=== PATIENT | female | born 2005 | race Caucasian/White ===

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

== ENCOUNTER 2024-05-16 21:59 | Emergency (ER) | payer MEDICAID, SELFPAY ==
[2024-05-16 22:03] VITALS: BP 135/74; PULSE 90; RESP 16; TEMP 36.2; O2SAT 100
--- NOTE | 2024-05-16 22:10 | W.ED.GENAD ---
Discharge Plan Disposition Patient Disposition: Home Condition: Good Discharge Details Clinical Impression: Pyelonephritis Primary Care Provider: None,None ED Provider: Antoine Lynn [place] Meds and New Rx's Prescriptions: New cefpodoxime 200 mg tablet 200 mg PO BID Qty: 14 0RF Rx Instructions: must administer with a meal/food Continued norgestimate-ethinyl estradiol [Tri-Lo-Shereen] 0.18/0.215/0.25 mg-25 mcg tablet 1 tab PO DAILY Qty: 84 1RF Discharge Instructions Instructions: Urinary Tract Infection, Adult ED Additional Instructions: You were seen for urinary symptoms and received dose of IV antibiotics with prescription for antibiotics at pharmacy. Please take as directed. Rest, hydrate, use acetaminophen or ibuprofen for pain/fever. Follow up with PCP at [facility] next week. Return to ED for worsening pain, confusion/lethargy, persistent vomiting, other concerns. Stand Alone Forms: Work Release HPI General Mode of arrival: ambulatory. Date/Time Provider Initiated Documentation: 05/16/24 22:10. Limitations to Documentation: no limitations. Information obtained by: patient. HPI Narrative: Patient presents to ED with complaint of dysuria, urgency, frequency, lower abdominal discomfort that began couple days ago. Has subsequently developed some left-sided flank pain and back pain which was much more severe today. Has nausea but no vomiting. Does not think she has had a fever. Has had UTIs in the past but nothing similar to this. She is on control tablets. She is not currently on her period. Related Data Home Medications ?Medication ?Instructions ?Recorded ?Confirmed norgestimate 0.18 mg/0.215 mg/0.25 1 tab PO DAILY #84 tabs 10/08/22 05/16/24 mg-ethinyl estradiol 25 mcg tablet (Tri-Lo-Shereen) cefpodoxime 200 mg tablet 200 mg PO BID #14 tabs 05/16/24 Previous Rx's ?Medication ?Instructions ?Recorded norgestimate 0.18 mg/0.215 mg/0.25 1 tab PO DAILY #84 tabs 10/08/22 mg-ethinyl estradiol 25 mcg tablet (Tri-Lo-Shereen) cefpodoxime 200 mg tablet 200 mg PO BID #14 tabs 05/16/24 Allergies Allergy/AdvReac Type Severity Reaction Status Date / Time No Known Allergies Allergy Verified 05/16/24 22:10 General Stated Complaint: Urinary AMINTA: 4 Review of Systems Narrative: per HPI Exam Narrative Exam Narrative: Const: WDWN female in NAD. VS per triage. HEENT: NC/AT. Normal facial exam. Neck: Supple. Trachea midline. Lungs: Normal respiratory effort. GI: Soft/ND/NT. Back: L CVAT. Neuro: A+O x 3. Normal speech, mentation, gait. Cranial nerves II - XII grossly intact. No gross motor or sensory deficit. Ext: No C/C/E. Course Vital Signs Vital signs: Vital Signs Temperature 97.2 F L 05/16/24 22:03 Pulse 90 05/16/24 22:03 Respiratory Rate 16 05/16/24 22:03 Blood Pressure 135/74 05/16/24 22:03 Pulse Oximetry 100 05/16/24 22:03 Temperature 97.2 F L 05/16/24 22:03 Pulse 90 05/16/24 22:03 Respiratory Rate 16 05/16/24 22:03 Blood Pressure 135/74 05/16/24 22:03 Blood Pressure Position Sitting 05/16/24 22:03 Pulse Oximetry 100 05/16/24 22:03 Oxygen Delivery Method Room Air 05/16/24 22:03 Oxygen Flow Rate 0 05/16/24 22:03 Pain Level 7 05/16/24 22:03 Medical Decision Making Patient presenting to ED with urinary symptoms and now left-sided flank pain with left CVAT on exam suggesting complicated UTI/pyelonephritis versus kidney stone. Symptoms seem most consistent with UTI. Urine is negative. IV established and fluids given as well as ketorolac and ondansetron. Ceftriaxone ordered pending urinalysis. Patient CBC is normal. Chemistries and kidney function normal. Urine with moderate blood and small leukocyte esterase. Micro with 3-5 red cells and 5-10 white cells. There is rare bacteria present. Given the lack of significant micro with moderate blood noted will obtain CT scan to be sure no evidence of ureteral stones. If no stones, home on antibiotics. Lab Data Lab results reviewed: Yes I reviewed the patient's lab results. Lab results narrative: see [facility] All Active Problems (Updated 05/16/24 @ 23:37 by Antoine Lynn MD) Pyelonephritis (Acute) Plantar wart of left foot (Acute) Acne (Chronic) Medical History No significant past medical history Surgical History No significant past surgical history Family History Mother Alcohol abuse Mental disorder ANXIETY Father Environmental allergies Asthma Other Neoplasm PGGF-, MGGF-leukemia Asthma pgf Brother Age: 13 Asthma Social History Smoking/Tobacco Use Status: Current every day Tobacco Type: e-cigarettes Smoking risk assessment performed?: Yes Alcohol Intake: current Alcohol Intake frequency: a few times a week Alcohol type: beer and hard liquor Drug use: Never Substance use type: does not use Details: Drinking at parties on weekends. Do you feel safe at home: Yes Do you feel safe in your relationship?: Yes
[2024-05-16 22:22] LABS: Bilirubin Negative (Negative); Blood Moderate (Negative); Clarity Clear (Clear); Glucose Negative (Negative); Ketones Negative (Negative); Leukocyte Esterase Small (Negative); Nitrite Negative (Negative); Urobilinogen 0.2 mg/dL (Up to 0.2); pH 6.5 (5-8)
[2024-05-16 22:27] LABS: Bacteria Rare HPF (Negative); C & S Indicated? No; Casts Negative LPF (Negative); Crystals Few Amorphous HPF (Negative); Epithelial Cells Rare HPF (Negative); Mucus Negative (Negative)
[2024-05-16] MEDS: Ketorolac 15 MG/ML VIAL IVP (22:28)
[2024-05-16] MEDS: cefTRIAXone 1 GM/50 ML BAG IVPB (22:28)
[2024-05-16] MEDS: Lactated Ringers 1,000 ML 1000 ML IV (22:28)
[2024-05-16 22:29] LABS: Abs Immature Grans 0.06 10^3/uL (0.0-0.06); Absolute Basophil Count 0.06 10^3/uL (0.0-0.2); Absolute Eosinophil Count 0.08 10^3/uL (0.0-0.7); Absolute Lymphocyte Count 2.57 10^3/uL (1.2-3.4); Absolute Monocyte Count 0.59 10^3/uL (0.1-0.8); Absolute Neutrophil Count 6.95 10^3/uL (1.2-6.7); Basophils % 0.6 %; Eosinophils % 0.8 %; HCT 38.4 % (36.0-46.0); HGB 12.6 g/dL (11.2-15.7); Immature Grans % 0.6 %; Lymphocytes % 24.9 %; MCH 28.7 pg (27.0-33.0); MCHC 32.8 % (32.0-36.0); MCV 88 fL (80-95); MPV 8.9 fL (8.0-11.0); Monocytes % 5.7 %; Neutrophils % 67.4 %; Platelet Count 310 10^3/uL (130-400); RBC 4.39 10^6/uL (3.93-5.22); RDW 12.2 % (11.7-14.6); RDW-SD 39.2 fL; WBC 10.31 10^3/uL (4.4-10.8)
[2024-05-16] MEDS: Ondansetron O.D.T. 4 MG TABEF PO (22:29)
--- NOTE | 2024-05-16 22:30 | DI.CT_ITS ---
Exam(s) CT RENAL COLIC WO EXAM: CT RENAL COLIC WO CLINICAL HISTORY: hematuria, left flank pain. TECHNIQUE: Imaging Protocol: Axial computed tomography images with coronal and sagittal reformatted images were created and reviewed. CONTRAST MATERIAL: Noncontrast COMPARISON: No exams were available for comparison FINDINGS: ABDOMEN: Lung Bases: Normal where visualized. Liver: Normal attenuation. No measurable mass. Gallbladder and biliary tract: No radiodense calculus or dilation. Pancreas: Normal density, no calcifications or inflammatory process. Spleen: Normal. Kidneys: Normal size, contour and axis. No radiodense stones. Slight dilatation of the left renal pe lvis. Findings could be secondary to a recently passed stone.. No masses seen. Adrenal glands: No masses seen. Abdominal Aorta: Abdominal portion non-dilated. Soft tissues: Unremarkable. PELVIS: Bladder: Mild diffuse bladder wall thickening could be secondary to under distension. No evidence of stones.No visible mass. Bowel: No obstruction or bowel wall thickening. Reproductive: Unremarkable. Peritoneal cavity: No ascites, collection or mesenteric inflammatory response. Bones: Unremarkable for age.. IMPRESSION: Mild dilatation of the right renal pelvis could be secondary to a recently passed stone. Bladder wall thickening could be secondary to under distension or cystitis. Clinical correlation rec ommended. RADIATION DOSE DELIVERED: 407.7mGy.cm Total DLP DATA REPOSITORY: All CT scans at this facility are submitted to the National Radiology Data Registry (NRDR) Dose Index Registry (DIR) with the [employer] (ACR). RADIATION OPTIMIZATION: All CT scans at this facility use at least one of these dose optimization te chniques: automated exposure control; mA and/or kV adjustment per patient size (includes targeted exa ms where dose is matched to clinical indication); or iterative reconstruction.
[2024-05-16 22:40] LABS: Anion Gap 6.8 mmol/L (3-11); BUN 12 mg/dL (7-18); CO2 29.2 mmol/L (21.0-32.0); CREATININE 0.7 mg/dL (0.55-1.02); Calcium 10.2 mg/dL (8.5-10.1); Chloride 103 mmol/L (98-107); Estimated GFR 127.69 (mL/min/1.73m2); Glucose 96 mg/dL (74-106); Potassium 3.8 mmol/L (3.5-5.1); Sodium 139 mmol/L (136-145)
--- NOTE | 2024-05-17 00:44 | DI.VRAD_ITS ---
PROCEDURE INFORMATION: Exam: CT Abdomen And Pelvis Without Contrast Exam date and time: 05/16/2024 10:51 PM Age: 18 years old Clinical indication: Other: Hematuria, left flank pain TECHNIQUE: Imaging protocol: Computed tomography of the abdomen and pelvis without contrast. COMPARISON: CR XR THORACIC SPINE COMPLETE 01/05/2022 11:19 PM FINDINGS: Lungs: The lungs are normal. There is no evidence of focal pulmonary consolidation. Pleural spaces: There is no evidence of pneumothorax. There are no pleural effusions present. Heart: The cardiac structures are normal. Low attenuation within the cardiac ventricular chambers may represent anemia. Liver: There are no focal liver lesions present. There is no evidence of intrahepatic or extrahepatic biliary ductal dilation. Gallbladder and biliary ducts: The gallbladder is normal. There is no cholelitiasis, wall thickening or pericholecystic fluid to suggest cholecystitis. Pancreas: The pancreas is normal. Spleen: The spleen is normal. Adrenal glands: The adrenal glands are normal. Kidneys and ureters: There is mild pyelocaliectasis of left kidney with mild prominence of the proximal left ureter. No calculi are identified. Consider recently passed urinary calculus. Stomach and bowel: There is no evidence of intestinal obstruction. No diverticulitis is present. Appendix: A normal appendix is identified. There is no evidence of distention or periappendiceal inflammation to suggest appendicitis. Intraperitoneal space: There is no free intraperitoneal air. There is no evidence of free intraperitoneal or pelvic fluid. There are no soft tissue masses or fluid collections. Vasculature: The aorta is normal without evidence of significant atherosclerosis or aneurysmal disease. The peripheral arterial vascular system visualized is unremarkable. The portal venous system visualized is unremarkable. The venous system visualized is unremarkable. Lymph nodes: There is no evidence of lymphadenopathy. Urinary bladder: There is nonspecific bladder wall thickening. This may be related to incomplete bladder filling. Cystitis is not excluded. Reproductive: The uterus is normal. The ovaries are normal. Bones/joints: The skeletal structures show no evidence of fracture or other acute processes. Soft tissues: The extra-abdominal soft tissues are normal. IMPRESSION: 1. There is mild pyelocaliectasis of left kidney with mild prominence of the proximal left ureter. No calculi are identified. Consider recently passed urinary calculus. 2. There is nonspecific bladder wall thickening. This may be related to incomplete bladder filling. Cystitis is not excluded. Dictated and Authenticated by: Ned Kate MD. Ordering:THANH Schultz MD
[2024-05-17 01:02] VITALS: BP 135/74; PULSE 90; RESP 16; TEMP 36.2; O2SAT 100
== END 2024-05-17 01:00 | disposition home or self-care (01) ==
PROVIDERS: Emergency Provider Emergency Medicine
DX: N10 Acute pyelonephritis (principal); F17.290 Nicotine dependence, other tobacco product, uncomplicated
CPT/HCPCS: 80048; 81025; 96365; 96375; 99284; 74176; 81003; 81015; 85025; J0696; J1885

== ENCOUNTER 2024-07-28 23:30 | Emergency (ER) | payer MEDICAID, SELFPAY ==
[2024-07-28 23:33] VITALS: BP 147/98; PULSE 113; RESP 16; TEMP 37; O2SAT 100
[2024-07-28 23:39] VITALS: BP 147/98; PULSE 113; RESP 16; TEMP 37; O2SAT 100
[2024-07-28] MEDS: Fluorescein STRIPS 100/BOX 1 MG (23:43)
[2024-07-28] MEDS: Erythromycin Ophth Oint 3.5 GM TUBE (23:43)
[2024-07-28] MEDS: Tetracaine 0.5% 4 ML BTL (23:43)
--- NOTE | 2024-07-28 23:57 | W.ED.GENAD ---
Discharge Plan Disposition Patient Disposition: Home Condition: Good Discharge Details Clinical Impression: Bilateral corneal abrasions Primary Care Provider: Mony Leon ED Provider: Carroll Erazo Home Meds and New Rx's Prescriptions: No Action norgestimate-ethinyl estradiol [Tri-Lo-Shereen] 0.18/0.215/0.25 mg-25 mcg tablet 1 tab PO DAILY Qty: 84 1RF Discharge Instructions Instructions: Corneal Abrasion ED Additional Instructions: At this time you have mild corneal abrasions in both eyes. Please apply the erythromycin ointment to each eye if you do still have pain every 4-6 hours. Please follow-up closely with the eye doctor. If you notice any worsening of your symptoms, or any new symptoms such as vomiting, diarrhea, fever, chills, shortness of breath, chest pain, numbness, weakness, or fainting , please return immediately to the emergency department for reevaluation. Please follow up with your primary care provider as soon as possible for reassessment and reevaluation. As always, it was a pleasure participating in your medical care today. Referrals: [facility] [Outside] Discharge Data Discharge Date/Time-TO BE ENTERED AT DEPARTURE: 07/29/24 00:07 HPI General Date/Time Provider Initiated Documentation: 07/28/24 23:39. HPI Narrative: This is a 19-year-old female with no significant past medical history who does not wear contact lenses or glasses who presents today for irritation in her eyes. Patient states that at around 2300 there was a plant which look like bamboo. It was in her family member's home. The branch was snapped in front of her face, and components of the plant and or liquid on the inside of the plant hit her face and eyes. She washed her face and eyes significantly, but felt like there were still some pieces left in there. She came to the ER for further assessment. She states it feels like there is more pieces in the left eye compared to the right. She denies any significant visual changes otherwise. She denies any headache. No history of known allergies to plants. No other complaints or modifying factors. Related Data Home Medications ?Medication ?Instructions ?Recorded ?Confirmed norgestimate 0.18 mg/0.215 mg/0.25 1 tab PO DAILY #84 tabs 10/08/22 07/28/24 mg-ethinyl estradiol 25 mcg tablet (Tri-Lo-Shereen) Previous Rx's ?Medication ?Instructions ?Recorded norgestimate 0.18 mg/0.215 mg/0.25 1 tab PO DAILY #84 tabs 10/08/22 mg-ethinyl estradiol 25 mcg tablet (Tri-Lo-Shereen) Allergies Allergy/AdvReac Type Severity Reaction Status Date / Time No Known Allergies Allergy Verified 07/28/24 23:40 General Stated Complaint: EyeProblem AMINTA: 4 Review of Systems All systems reviewed & are unremarkable except as noted in HPI and below Exam Narrative Exam Narrative: 1.Const: Well-nourished, Well-developed, appearing stated age 2.Eyes: PERRL, mild bilateral conjunctival injection, and symmetrical lids. Left eye: Peripheral vision intact. No nystagmus. No clinical signs of septal/orbital cellulitis, no redness around the eye, no proptosis. No hyphema, no signs of trauma around the eye, no periorbital emphysema. No sluggishness of the pupil. No ophthalmoplegia. No afferent pupillary defect. Fluorescein exam is positive for corneal abrasion with a large area of uptake just inferior to the iris with other small areas of uptake surrounding it. Eversion of the upper and lower lids demonstrate no retained foreign bodies. negative Prabhjot sign. Right eye: Peripheral vision intact. No nystagmus. Fundoscopic exam shows normal optic discs and normal vasculature. No clinical signs of septal/orbital cellulitis, no redness around the eye, no proptosis. No hyphema, no signs of trauma around the eye, no periorbital emphysema. No sluggishness of the pupil. No ophthalmoplegia. No afferent pupillary defect. Fluorescein exam is positive for a few small areas of uptake, with no retained foreign bodies. Upper and lower lids were everted and show no retained foreign bodies., negative Prabhjot sign. 3.ENT: Atraumatic external nose and ears. Moist MM. Neck: Symmetric, trachea midline, No thyromegaly. 4.CVS: +S1/S2, Peripheral pulses 2+ and equal in all extremities. Brisk capillary refill in all extremities. 5.RESP: Unlabored respiratory effort. Clear to auscultation bilaterally. No wheezes rales or rhonchi 6.GI: Soft, Nontender/Nondistended, No hepatosplenomegaly. No guarding or rebound. 7.MSK: Normocephalic/Atraumatic, Extremities w/o deformity or ttp No cyanosis or clubbing, Normal movement of all extremities 8.Skin: Warm, Dry. No rashes or lesions. 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 Sensation grossly intact, no focal neurologic deficits. 10.Psych: (AAO) x3. Appropriate mood and affect Course Vital Signs Vital signs: Vital Signs Temperature 37.0 C 07/28/24 23:33 Pulse 113 H 07/28/24 23:33 Respiratory Rate 16 07/28/24 23:33 Blood Pressure 147/98 H 07/28/24 23:33 Pulse Oximetry 100 07/28/24 23:33 Temperature 37.0 C 07/28/24 23:39 Temperature Source Oral 07/28/24 23:39 Pulse 113 H 07/28/24 23:39 Respiratory Rate 16 07/28/24 23:39 Respiratory Effort Normal, Non-Labored 07/28/24 23:37 Blood Pressure 147/98 H 07/28/24 23:39 Blood Pressure Position Sitting 07/28/24 23:39 Pulse Oximetry 100 07/28/24 23:39 Oxygen Delivery Method Room Air 07/28/24 23:39 Oxygen Flow Rate 0 07/28/24 23:33 Pain Level 8 07/28/24 23:39 Medical Decision Making This is a 19-year-old female with no significant past medical history who does not wear contact lenses or glasses who presents today for irritation in her eyes. Patient states that at around 2300 there was a plant which look like bamboo. It was in her family member's home. The branch was snapped in front of her face, and components of the plant and or liquid on the inside of the plant hit her face and eyes. She washed her face and eyes significantly, but felt like there were still some pieces left in there. She came to the ER for further assessment. She states it feels like there is more pieces in the left eye compared to the right. She denies any significant visual changes otherwise. She denies any headache. No history of known allergies to plants. No other complaints or modifying factors. Exam with fluorescein staining demonstrates uptake notably in the left eye inferior to the iris with a notable abrasion, and then a few small punctate abrasions surrounding it. Few small punctate abrasions are noted in the right eye. No retained foreign body. Negative Prabhjot sign. Pupils are equal and reactive suggesting no signs of toxic poisoning or atropine. Symptoms consistent with mild corneal abrasions. Erythromycin ointment was applied, patient's pain was notably resolved. Vision is otherwise intact. Patient stable for discharge. Recommend close follow-up with structural iron worker on an outpatient basis. I have extensively reviewed the treatment plan and discharge instructions with the patient. I have addressed all patient concerns at this time. The patient was made aware of what symptoms to monitor for that would warrant a return to the emergency department. Discussed the plan with the patient, they demonstrate verbal understanding and agreement with our assessment and plan at this time. The documentation in this chart was dictated using [employer] dictation software. Please excuse any dictation errors. Quality:SDOH Health Related Social Needs: No Data to Display PFSH All Active Problems Bilateral corneal abrasions (Acute) Plantar wart of left foot (Acute) Acne (Chronic) Medical History No significant past medical history Surgical History No significant past surgical history Family History Mother Alcohol abuse Mental disorder ANXIETY Father Environmental allergies Asthma Other Neoplasm PGGF-, MGGF-leukemia Asthma pgf Brother Age: 15 Asthma Social History Smoking/Tobacco Use Status: Current every day Tobacco Type: e-cigarettes Smoking risk assessment performed?: Yes Alcohol Intake: current Alcohol Intake frequency: a few times a week Alcohol type: beer and hard liquor Drug use: Never Substance use type: does not use Details: Drinking at parties on weekends. Housing: apartment Do you feel safe at home: Yes Do you feel safe in your relationship?: Yes
[2024-07-29 00:07] VITALS: BP 129/78; PULSE 94; RESP 16; O2SAT 98
== END 2024-07-29 00:07 | disposition home or self-care (01) ==
PROVIDERS: Emergency Provider Student in an Organized Health Care Education/Training Program; PCP Nurse Practitioner Family
DX: S05.01XA Injury of conjunctiva and corneal abrasion without foreign body, right eye, initial encounter (principal); S05.02XA Injury of conjunctiva and corneal abrasion without foreign body, left eye, initial encounter; F17.290 Nicotine dependence, other tobacco product, uncomplicated; W22.8XXA Striking against or struck by other objects, initial encounter
CPT/HCPCS: 99283

== ENCOUNTER 2025-08-15 12:36 | Emergency (ER) | payer MEDICAID, SELFPAY ==
[2025-08-15 12:40] VITALS: BP 122/79; PULSE 83; RESP 16; TEMP 36.7; O2SAT 98
--- NOTE | 2025-08-15 13:00 | DI.RAD_ITS ---
Exam(s) XR KNEE RT 3V AP,LAT,VICK XR KNEE LT 3V AP,LAT,VICK EXAM: XR KNEE RT 3V AP,LAT,VICK CLINICAL HISTORY: medial pain after fall north. TECHNIQUE: 2D digital imaging was performed. Three views of both knees. COMPARISON: CR XR KNEE LT 3V AP,LAT,VICK from 08/15/2025 FINDINGS: BONES: No acute fracture is present. No bony destructive lesion is seen. JOINTS: The knee is normally aligned. No joint effusion is seen. SOFT TISSUE: Normal. IMPRESSION: Unremarkable radiographs of the bilateral knees. DATA REPOSITORY: RADIATION DOSE DELIVERED:
[2025-08-15] MEDS: Ibuprofen 600 MG TAB PO (14:13)
--- NOTE | 2025-08-15 14:39 | ED.GENADUL_ITS ---
Discharge Plan Disposition Patient Disposition: Home Condition: Stable Discharge Details Clinical Impression: Knee sprain, bilateral Primary Care Provider: Mony Leon ED Provider: Apryl Carbajal Home Meds and New Rx's Prescriptions: No Action norgestimate-ethinyl estradiol [Tri-Lo-Shereen] 0.18/0.215/0.25 mg-25 mcg tablet 1 tab PO DAILY Qty: 84 1RF Discharge Instructions Instructions: Knee Sprain (DC) Additional Instructions: You were seen in the emergency department today for evaluation of an injury to both of your knees sustained 2 days ago. In our department had a full physical examination performed, with reassuring x-rays that did not show any sign of severe swelling or broken bones in the joint. Your ligaments felt strong on my physical examination, but we have provided you with Trey wrap's to provide some compression and support. Please continue to use ice and elevation for swelling management. Please use therapeutic dosing of Tylenol (acetaminophen) & Advil (ibuprofen) in an alternating fashion as follows: Take 1000mg of Tylenol every 6 hours without missing doses- that is 4 times per day. Snf in between the Tylenol doses, take 600mg of Advil also on a 6 hour schedule, that is also 4 times per day. With this strategy, you will be taking something for fever/pain as often as every 3 hours. The daily maximum dosing of Tylenol is 4000mg, and the daily maximum dosing of Advil is 2400mg. Please note that some common cold medications & prescription pain medications may contain acetaminophen and you need to read OTC drug labels and factor that in to maximum daily doses. Please follow-up with your primary care provider in the next few days to discuss this visit and any symptoms that change, worsen, or persist. Thank you for allowing us to be part of your care. Stand Alone Forms: Portal Information, Work Release Discharge Data Discharge Date/Time-TO BE ENTERED AT DEPARTURE: 08/15/25 15:02 HPI General Mode of arrival: ambulatory . Date/Time Provider Initiated Documentation: 08/15/25 12:43 . Limitations to Documentation: no limitations . Information obtained by: patient and old records reviewed . HPI Narrative: This is a 20-year-old female patient presenting for evaluation of bilateral knee pain. 2 nights ago the patient reports that she had been drinking, and was dancing and slipped and accidentally fell into a split. She reports that the night of she did not feel any significant discomfort and went to bed, woke up in the morning and had significant discomfort especially in the medial aspects of her bilateral knees. This pain has since generalized and is now located completely throughout her knee both in the anterior and posterior aspects. She has not noted any overlying skin changes or swelling, has been able to walk, has no numbness or tingling distal to this injury. This is an isolated injury and the patient has otherwise been in her normal state of health. Related Data Home Medications ?Medication ?Instructions ?Recorded ?Confirmed norgestimate 0.18 mg/0.215mg/0.25 1 tab PO DAILY #84 t abs 10/08/22 08/15/25 mg-ethinyl estradiol 0.025 mg tablet (Tri-Lo-Shereen) Previous Rx's ?Medication ?Instructions ?Recorded norgestimate 0.18 mg/0.215mg/0.25 1 tab PO DAILY #84 t abs 10/08/22 mg-ethinyl estradiol 0.025 mg tablet (Tri-Lo-Shereen) Allergies Allergy/AdvReac Type Severity Reaction Status Date / Time No Known Allergies Allergy Verified 08/15/25 12:42 General Stated Complaint: Orthopedic AMINTA: 4 Exam Narrative Exam Narrative: Gen: Awake and alert, in no apparent distress HEENT: Non-icteric sclera Neck: Supple Lungs: No apparent respiratory distress, normal respiratory effort. CV: Appears well perfused Abdomen: Non-distended MSK: Moves 4 extremities without apparent limitation in ROM, patient has full passive and active range of motion of the bilateral knees, though extremes of extension do cause the patient a sensation of tightness in the knee. Bilaterally, the quadriceps and patellar tendons are nontender to palpation and without palpable defects. She has generalized tenderness along the medial and popliteal regions of the knee, she has firm endpoint with bilateral Balbir's as well as valgus and varus stress testing, does not seem to have tenderness with stressing of these ligaments except in the areas where a hand is directly touching her. Distal to this injury, TP pulses strong and symmetrical, preserved strength and sensation of the bilateral feet. Skin: Visualized skin without rashes, cyanosis. Neuro: Normal Gait, no obvious focal deficits or facial asymmetry. Speaks in full, clear sentences. Psych: Appropriate for situation. Course Vital Signs Vital signs: Vital Signs Temperature 36.7 C 08/15/25 12:40 Pulse 83 08/15/25 12:40 Respiratory Rate 16 08/15/25 12:40 Blood Pressure 122/79 08/15/25 12:40 Pulse Oximetry 98 08/15/25 12:40 Temperature 36.7 C 08/15/25 12:40 Pulse 83 08/15/25 12:40 Respiratory Rate 16 08/15/25 12:40 Blood Pressure 122/79 08/15/25 12:40 Pulse Oximetry 98 08/15/25 12:40 Pain Level 6 08/15/25 12:58 Medical Decision Making This is a 20-year-old female patient presenting for evaluation of bilateral knee pain. Differential includes but is not limited to fracture, dislocation, sprain/strain, contusion, less likely neurovascular derangement given the intact exam, no evidence of swelling to suggest DVT or infection. We will obtain x-ray imaging and provide the patient with Tylenol and ibuprofen as well as ice packs. -X-rays show no acute osseous abnormalities nor significant intra-articular swelling. I have a low concern for complete ligamentous derangement given the patient's ambulatory status and reassuring ligamentous exams. Additionally, I feel that bilateral knee braces may be prohibitive in terms of safe movement and ambulation. After shared decision-making conversation with the patient we placed Trey wrap's bilaterally to provide some compression and support, and I counseled her on conservative pain management. She has a primary care doctor with whom she will follow-up in the next few days to discuss this visit and any symptoms that change, worsen, or persist. At this time, the patient has had a full medical evaluation and is safe for discharge to home. They are hemodynamically stable, ambulatory, and tolerating PO. They are understanding of the follow-up plan and return precautions. They left our facility without incident. Apryl Carbajal MD [facility] All Active Problems (Updated 08/15/25 @ 14:40 by Apryl Carbajal MD) Knee sprain, bilateral (Acute) Plantar wart of left foot (Acute) Acne (Chronic) Medical History No significant past medical history Surgical History No significant past surgical history Family History Mother Alcohol abuse Mental disorder ANXIETY Father Environmental allergies Asthma Other Neoplasm PGGF-, MGGF-leukemia Asthma pgf Brother Age: 15 Asthma Social History Smoking/Tobacco Use Status: Current every day Tobacco Type: e-cigarettes Smoking risk assessment performed?: Yes Alcohol Intake: current Alcohol Intake frequency: a few times a week Alcohol type: beer and hard liquor Drug use: Never Substance use type: does not use Details: Drinking at parties on weekends. Housing: apartment Do you feel safe at home: Yes Do you feel safe in your relationship?: Yes PAWSS Have you Been Recently Intoxicated or Drunk Within the Last 30 days?: No Have you Ever Experienced Previous Episodes of Alcohol Withdrawal?: No Have you ever Experienced Withdrawal Seizures?: No Have you ever Experienced Delirium Tremens(DT)s?: No Have you ever undergone Alcohol Rehabilitation Treatment (i.e, inpt ot outpatient treatment programs)?: No Have you ever Experienced Blackouts?: No Have you ever Combined Alcohol with other Downers within the last 90 days?: No Have you ever Combined Alcohol with any other Substance of Abuse during the last 90 days?: No Positive Blood Alcohol level on Presentation? [PCS.BAL]: No Evidence of Increased Autonomic Activity (i.e. HR>120, tremor, sweating, agitation, nausea)?: No Result: 0
[2025-08-15 15:01] VITALS: BP 128/64; PULSE 84; RESP 12; O2SAT 97
== END 2025-08-15 15:02 | disposition home or self-care (01) ==
PROVIDERS: Emergency Provider Emergency Medicine; PCP Nurse Practitioner Family
DX: S83.91XA Sprain of unspecified site of right knee, initial encounter (principal); S83.92XA Sprain of unspecified site of left knee, initial encounter; W01.0XXA Fall on same level from slipping, tripping and stumbling without subsequent striking against object, initial encounter
CPT/HCPCS: 99283; 99284; 73562